=== PATIENT | female | born 1940 | race Caucasian/White ===

== ENCOUNTER 2017-07-19 13:27 | Emergency (ER) | payer MEDICAID, MEDICARE ==
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
[2017-07-19 14:49] VITALS: BP 172/84
== END 2017-07-19 14:51 | disposition home or self-care (01) ==
LOC: ER 13:27
DX: S50.11XA Contusion of right forearm, initial encounter (principal); R40.2410 Glasgow coma scale score 13-15, unspecified time; W01.190A Fall on same level from slipping, tripping and stumbling with subsequent striking against furniture, initial encounter; Y92.009 Unspecified place in unspecified non-institutional (private) residence as the place of occurrence of the external cause